=== PATIENT | male | born 1970 | race Caucasian/White ===

== ENCOUNTER 2017-07-09 03:05 | Emergency (ER) | payer MEDICAID ==
[~2017-07-09] VITALS: Ht 175.3 cm; Wt 79.4 kg
[~2017-07-09 03:05] MED LIST: ABI10 PO; SERT50TA PO
[2017-07-09 03:12] VITALS: BP 155/99
--- NOTE | 2017-07-09 03:25 | NUR ---
PATIENT PRESENTS TO ED WITH FEAR OF BEING HURT OR ATTACKED BY AN UNKNOWN ASSAILENT. PT STATES FEELING PARANOID AND "ON-EDGE." HE STATES THAT HE FEELS THOUGH HE WILL HURT WHOM EVER IS AFTER HIM BUT WILL NOT HURT HIMSELF OR ANY OTHERS AT [facility]. PT IS CALM AND COOPERATIVE. APPEARS NERVOUS. DR HUGHES AT BEDSIDE FOR OBSERVATION. DENIES N/V/D; SKIN IS PINK/WARM/DRY; AAOX4 WITH EVEN AND STEADY GAIT; LUNGS CLEAR BL; HR EVEN AND REGULAR; PT DENIES ANY FEVER, CP, SOB, OR COUGH AT THIS TIME; PATIENT STATES PAIN OF 0/10 AT THIS TIME; VSS; PATIENT POSITIONED FOR COMFORT; HOB ELEVATED; BEDRAILS UP X2; BED DOWN. ER MD MADE AWARE OF PT STATUS. CONTINUE TO MONITOR.
--- NOTE | 2017-07-09 03:25 | NUR ---
PT AMBULATED TO ER BED 6
[2017-07-09] MEDS ORDERED: LORazepam 2 MG/ML VIAL IM ONE (03:35)
--- NOTE | 2017-07-09 03:39 | NUR ---
PER DR. HUGHES, WE DO NOT NEED [facility]150 HOLD EVALUATION. PT IN BED RESTING, POSITIONED FOR COMFORT. VSS. CONTINUE TO MONITOR.
[2017-07-09 04:42] VITALS: BP 155/99
--- NOTE | 2017-07-09 04:42 | NUR ---
Patient discharged with v/s stable. Written and verbal after care instructions given and explained. Patient alert, oriented and verbalized understanding of instructions. Ambulatory with steady gait. All questions addressed prior to discharge. ID band removed. Patient advised to follow up with PMD. Rx of Ability, Xanax, and Zoloft given. Patient educated on indication of medication including possible reaction and side effects. Opportunity to ask questions provided and answered.
== END 2017-07-09 04:42 | disposition home or self-care (01) ==
LOC: MED 03:05
DX: F43.9 Reaction to severe stress, unspecified (principal); I10 Essential (primary) hypertension
CPT/HCPCS: 96372; 99283; J2060

== ENCOUNTER 2017-10-13 10:36 | Inpatient (IN) | payer MEDICAID ==
[~2017-10-13] VITALS: Ht 175.3 cm; Wt 77.1 kg
--- NOTE | 2017-10-13 01:41 | NUR ---
PT SLEEPING COMFORTABLY, NO SIGN OF DISTRESS. Addendum: 10/14/17 at 0143 by Camilla Worthington RN WRONG TIME IT SHOULD HAVE BEEN 2200
--- NOTE | 2017-10-13 10:40 | NUR ---
PT AMBULATES TO BED 10
[2017-10-13 10:49] VITALS: BP 147/96
--- NOTE | 2017-10-13 11:05 | NUR ---
PATIENT PRESENTS TO ED WITH COMPLAINTS OF ANXIETY. PATIENT STATES HE FEELS LIKE HE IS GOING CRAZY AND CANNNOT CONTROL THE THOUGHTS IN HIS HEADS. PATIENT ADMITS TO USING METH EARLIER TODAY. PATIENT HAS BURN DUTTON OVER CHEST AND INJECTION WOUNDS OVER ARMS. DENIES N/V/D; SKIN IS PINK/WARM/DRY; AAOX4 WITH EVEN AND STEADY GAIT; LUNGS CLEAR BL; HR EVEN AND REGULAR; PT DENIES ANY FEVER, CP, SOB, OR COUGH AT THIS TIME; PATIENT STATES PAIN OF 0/10 AT THIS TIME; VSS; PATIENT POSITIONED FOR COMFORT; HOB ELEVATED; BEDRAILS UP X1; BED DOWN. ER MD MADE AWARE OF PT STATUS.
[2017-10-13] MEDS ORDERED: LORazepam 1 MG TAB PO ONE ×2 (11:25→15:50)
[2017-10-13] MEDS ORDERED: diphenhydrAMINE 50 MG CAP PO ONE (11:25)
[2017-10-13] MEDS ORDERED: HALOPERIDOL 1 MG TAB PO ONE (11:25)
--- NOTE | 2017-10-13 13:50 | NUR ---
PATIENT WAS FOUND WITH TOP HALF OF IV POLE SWINGING AROUND AND TALKING TO HIMSELF, PATIENT STATED "IM TRYING TO GET RID OF THE VOICES." PER ED MD AND CHARGE NURSE, PATIENT NEEDS A 5150 EVAL.
--- NOTE | 2017-10-13 13:57 | NUR ---
SPOKE WITH AHMET DISPATCHER AT [facility] AND EXPLAINED WE NEED A 5150 EVAL FOR PATIENT. AHMET STATED SHE WILL BE SENDING AN OFFICER SOON.
--- NOTE | 2017-10-13 14:42 | NUR ---
PT MOVED TO BED 5
--- NOTE | 2017-10-13 14:46 | NUR ---
ASSUMED CARE, PT IN NAD. RESP EVEN AND UNLABORED. PT WITH AUDITORY HALLUCINATIONS, DENIES SUICIDAL/HOMICAL IDEATION. SITTER JOHN AT BEDSIDE. DENIES ANY PAIN. IV SL STARTED AND FLUIDS GIVEN ORDERED.
[2017-10-13] MEDS ORDERED: NACL 0.9% 1,000 ML IV ONE (14:52)
--- NOTE | 2017-10-13 14:58 | NUR ---
XRAY AT BEDSIDE
[2017-10-13 15:15] LABS: BASOPHILS % (AUTO) 0.4 % (0.0-2.0); EOSINOPHILS # (AUTO) 0.1 K/uL (0-0.4); EOSINOPHILS % (AUTO) 0.7 % (0.0-4.0); HEMATOCRIT 53.4 % (36-52); HEMOGLOBIN 18.1 g/dL (12.0-18.0); LYMPHOCYTES % (AUTO) 24.8 % (20.5-51.1); MEAN CORPUSCULAR HEMOGLOBIN 32 pg (27-31); MEAN CORPUSCULAR HGB CONC 34 g/dL (33-37); MEAN CORPUSCULAR VOLUME 94.2 fL (80-94); MONOCYTES # (AUTO) 0.6 K/uL (0.8-1.0); MONOCYTES % (AUTO) 4.6 % (1.7-9.3); NEUTROPHILS # (AUTO) 8.3 K/uL (1.8-7.7); NEUTROPHILS % (AUTO) 69.5 % (42.2-75.2); PLATELET COUNT (AUTO) 506 K/uL (140-450); RED BLOOD CELL COUNT(AUTO) 5.67 MIL/uL (4.20-6.10); RED CELL DISTRIBUTION WIDTH 13.8 % (11.6-13.7)
[2017-10-13 15:28] LABS: ANION GAP 13.9 (8-16); CARBON DIOXIDE 28.8 mmol/L (21-32); CHLORIDE 101 mmol/L (98-107); GFR ARICAN-AMERICAN 104 mL/min (>90); GLUCOSE 130 mg/dL (74-106); POTASSIUM 3.7 mmol/L (3.5-5.1); SODIUM SERUM 140 mmol/L (136-145); UREA NITROGEN, BLOOD 20 mg/dL (7-18)
[2017-10-13 15:33] LABS: ALBUMIN 4.5 g/dL (3.4-5.0); ASPARTATE AMINOTRANSFERASE 62 U/L (15-37); TOTAL BILIRUBIN 2.2 mg/dL (0.0-1.0)
--- NOTE | 2017-10-13 16:19 | NUR ---
NO ACUTE CHANGE IN CONDITON, PT CALM AND QUIET. FLUIDS AND FOOD OFFERED, PT REFUSES AT THIS TIME.
[2017-10-13 16:21] LABS: APPEARANCE,URINE CLEAR (CLEAR); BILIRUBIN,URINE 2+ (NEGATIVE); BLOOD, URINE NEGATIVE (NEGATIVE); COLOR,URINE ORANGE (YELLOW); LEUKOCYTE ESTERASE ,URINE NEGATIVE (NEGATIVE); NITRITE, URINE NEGATIVE (NEGATIVE); UGLUCOSE NEGATIVE (NEGATIVE)
[2017-10-13 16:27] LABS: BARBITURATE, URINE NEG. ng/ml (NEG <=200); BENZODIAZEPINE, URINE NEG. ng/mL (NEG <=200); CANNABINOID, URINE POS. ng/mL (NEG <=50); COCAINE, URINE NEG. ng/mL (NEG <=300); OPIATE, URINE NEG. ng/mL (NEG <=2000); PHENCYCLIDINE SCREEN,URINE NEG. ng/mL (NEG <=25)
[2017-10-13 16:35] LABS: RBC,URINE 0-5 (RARE) /HPF (0-5); WBC,URINE 0-5 (RARE) /HPF (0-5)
--- NOTE | 2017-10-13 18:53 | NUR ---
NO ACUTE CHANGE IN CONDITION, PT WITH EYES CLOSED, IN NAD.
[2017-10-13] MEDS ORDERED: ACETAMINOPHEN 325 MG TAB PO PRN (19:05)
[2017-10-13] MEDS ORDERED: ONDANSETRON 4 MG/2 ML VIAL IVP PRN (19:05)
--- NOTE | 2017-10-13 19:10 | NUR ---
Patient appears to be resting comfortably in bed. Respirations even and unlabored.
--- NOTE | 2017-10-13 19:45 | NUR ---
Per Edwina @ [facility] because she does not have access to put notes in [facility]. [facility] S[facility]chez Bear @ [phone] and spoke with Marii, no beds available. Patient is on the waitlist. [facility] Torsten Gillespie @ [phone] and spoke with Kaila, no beds available, patient is on the wait list. [facility] @ [phone] and spoke with Ines, no beds available. [facility] @ [phone] and spoke with Maegan, no beds available. Patient is on the wait list. [facility] @ [phone] and spoke with Everton, no beds available, packet was faxed. [facility] @ [phone] and spoke with Davina. Davina states they want to keep beds for walk-in patients. [facility] @ [phone] and spoke with Cedrick, no beds available, to call back on Sunday. [facility] @ [phone] and spoke with Jag, no beds available, to call back tomorrow morning after shift.
[2017-10-13 19:46] LABS: FREE T4 (FREE THYROXINE) 1.46 ng/dL (0.76-1.46); MAGNESIUM 2.4 mg/dL (1.8-2.4); PHOSPHORUS 3.6 mg/dL (2.5-4.9); THYROID STIMULATING HORMONE 1.05 uIU/mL (0.34-3.74)
--- NOTE | 2017-10-13 20:17 | NUR ---
Patient appears to be resting comfortably in bed. Respirations even and unlabored. Sitter at bedside
[2017-10-13 20:19] LABS: PROTHROMBIN TIME 10.4 secs (10.8-13.4)
--- NOTE | 2017-10-13 20:41 | NUR ---
APatient will be admitted to care of GOVIL. Admited to MS. Will go to room 110B. Belongings list completed. Report to NIKOS VILLEGAS.
[2017-10-13 20:45] VITALS: BP 125/86
--- NOTE | 2017-10-13 20:45 | NUR ---
RECEIVED PT FROM ER VIA W/C, AWAKE, ALERT ORIENTEDX4 NO RESPIRATORY DISTRESS NOTED OR C/O PAIN AT THIS TIME. IV HL TO LEFT AC #20. A SITTER AT THE BEDSIDE. INSTRUCTED PT NOT TO FROM NOW ON DUE TO US IN THE MORNING. HE WAS GIVEN FOOD SOON HE GOT TO THE FLOOR. 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 WILL TAKE PICTURES LATER.
[2017-10-13] MEDS ORDERED: SERTRALINE 50 MG TAB PO SCH (21:00)
[2017-10-13] MEDS ORDERED: QUEtiapine FUMARATE 25 MG TAB PO SCH (21:00)
--- NOTE | 2017-10-13 22:22 | NUR ---
RECEIVED A CALL FROM WILL FROM [facility], PER WILL THEY CANNT ACCEPT PT DUE TO OUT OF [facility]
[2017-10-14 01:00] VITALS: BP 123/83
--- NOTE | 2017-10-14 01:45 | NUR ---
RECEIVED REPORT FROM CHARGE NURSE NIKOS. 1:1 SITTER BY DRAFTER STRUCTURAL PT CURRENTLY IN RESTROOM USING TOILET. NO S/S OF RESPIRATORY DISTRESS OR DISCOMFORT NOTED AT THIS TIME. AOX4, ON ROOM AIR WITH LEFT FA #[id number]. WILL CONTINUE TO MONITOR. Addendum: 10/14/17 at 0400 by Mary Carter RN PLEASE DISREGARD. WRONG PT.
--- NOTE | 2017-10-14 02:05 | NUR ---
NO SIGN OF DISTRESS, SLEEPING QUIETLY.
[2017-10-14 04:10] VITALS: BP 100/60
--- NOTE | 2017-10-14 04:12 | NUR ---
AWAKEN FOR V/S AND PICTURE. NO COMPLAINTS.
--- NOTE | 2017-10-14 06:00 | NUR ---
STILL ASLEEP, NO SIGNS OF DISTRESS.
--- NOTE | 2017-10-14 06:55 | NUR ---
AWAKE, WANTS TO EAT,BUT WAS TOLD THAT HE IS NPO FOR THE TEST US ABDOMEN. WAS TOLD BREAKFAST IS NOT HERE YET, HE ALSO SAID THAT HE IS NOT DOING THE TEST.
--- NOTE | 2017-10-14 07:30 | NUR ---
RECEIVED REPORT FROM PM NURSE, PT SLEEPING BUT AROUSABLE, RA, NO S/S OF RESPIRATORY DISTRESS NOTED. INTRODUCED MYSELF TO PT AND REORIENTED PT ENVIRONMENT. PT VERBALIZED UNDERSTANDING. PT STATED HE WANTS TO HAVE BREAKFAST AND REFUSE ABD US. PT STATED HE DOES NOT HAVE ANY SUICIDAL PLAN AT THIS MOMENT. WILL CONTINUE TO CLOSE MONITORING PT.
[2017-10-14 07:58] LABS: BASOPHILS # (AUTO) 0.1 K/uL (0.00-0.22); BASOPHILS % (AUTO) 0.6 % (0.0-2.0); EOSINOPHILS # (AUTO) 0.2 K/uL (0-0.4); EOSINOPHILS % (AUTO) 2.2 % (0.0-4.0); HEMATOCRIT 44.4 % (36-52); HEMOGLOBIN 15.1 g/dL (12.0-18.0); LYMPHOCYTES # (AUTO) 2.6 K/uL (2.0-11.5); MEAN CORPUSCULAR HEMOGLOBIN 32 pg (27-31); MEAN CORPUSCULAR HGB CONC 34 g/dL (33-37); MEAN CORPUSCULAR VOLUME 95.4 fL (80-94); MONOCYTES # (AUTO) 0.8 K/uL (0.8-1.0); MONOCYTES % (AUTO) 9.6 % (1.7-9.3); NEUTROPHILS # (AUTO) 5.1 K/uL (1.8-7.7); NEUTROPHILS % (AUTO) 57.6 % (42.2-75.2); PLATELET COUNT (AUTO) 414 K/uL (140-450); RED BLOOD CELL COUNT(AUTO) 4.66 MIL/uL (4.20-6.10); RED CELL DISTRIBUTION WIDTH 13.7 % (11.6-13.7); WHITE BLOOD COUNT (AUTO) 8.8 K/uL (4.8-10.8)
--- NOTE | 2017-10-14 08:00 | NUR ---
PT REFUSED VITALS CHECK.
--- NOTE | 2017-10-14 08:05 | NUR ---
MADE DR. GRIFFITH AWARE PT REFUSED ABD US AND WANTS TO EAT BREAKFAST.
[2017-10-14 08:09] LABS: ANION GAP 12.1 (8-16); CARBON DIOXIDE 26.6 mmol/L (21-32); CREATININE 0.8 mg/dL (0.7-1.3); POTASSIUM 3.7 mmol/L (3.5-5.1)
[2017-10-14 08:19] LABS: CHOL/HDL RATIO 3.1 (1-4.5); MAGNESIUM 2.2 mg/dL (1.8-2.4); PHOSPHORUS 3.7 mg/dL (2.5-4.9)
--- NOTE | 2017-10-14 08:31 | NUR ---
[facility] aware patient is still in unit. received report from police shift commander, will continue to look for placement throughout shift. will update unit when new information has been received.
[2017-10-14] MEDS ORDERED: BETAMETHASONE DIPROP 0.05% 15 GM TUBE TP SCH (09:00)
[2017-10-14] MEDS ORDERED: SERTRALINE 50 MG TAB PO SCH (09:00)
[2017-10-14] MEDS ORDERED: QUEtiapine FUMARATE 25 MG TAB PO SCH (09:00)
[2017-10-14] MEDS ORDERED: ARIPiprazole 10 MG TAB PO SCH (09:00)
--- NOTE | 2017-10-14 11:00 | NUR ---
FAXED CONSULTATION FORM TO DR. FRAZIER OFFICE.
--- NOTE | 2017-10-14 12:45 | NUR ---
LUNCH TRAY OFFERED TO PT. PT HAD A GOOD APPETITE.
--- NOTE | 2017-10-14 13:23 | NUR ---
No update from contacted facilities at this time, faxed over paperwork to [facility] s/w [employer] [facility]w [facility], reviewing chart. No Bed Vacancies at following facilities: [facility] s[facility]w [facility] s/w [facility] s/w [facility] s/w [facility] s/w [facility] s/w Puja Stroud [facility] [place] NO ANSWER [facility] NO [facility]SWER [facility] s/w [facility] s/w [facility] s/w [facility] s/w [facility] s/w Ricardo Will continue to look for placement throughout shift.
--- NOTE | 2017-10-14 14:16 | NUR ---
ALso faxed over paperwork to [facility] s/w Teodoro, pending review.
--- NOTE | 2017-10-14 15:20 | NUR ---
PSYCHIATRIST AT BEDSIDE TO ASSESS PT.
[2017-10-14 16:00] VITALS: BP 107/67
[2017-10-14] MEDS ORDERED: DIPRC TP (16:36)
--- NOTE | 2017-10-14 17:00 | NUR ---
PT AOX4, RA, NO SOB NOTED. SIGNED DISCHARGE PAPER,ALL PERSONAL BELONGINGS WITH PT, BUS TICKET OFFERED. RESOURCES FOR HOMELESS GIVEN TO PT, PT SIGNED AND VERBALIZED UNDERSTANDING. IV REMOVED. PT VITALS STABLE AT THIS TIME.
--- NOTE | 2017-10-14 17:19 | NUR ---
PT WALKED OUT OF UNIT WITH STEADY GAIT, OFFERED PT WHEELCHAIR, PT REFUSED.
--- NOTE | 2017-10-16 11:21 | NUR ---
FAXED RETRO REVIEW TO [facility] [phone] PHONE [phone]
== END 2017-10-14 17:21 | disposition home or self-care (01) | DRG 775 ==
LOC: MED 10:36 → MTU 19:09
PROVIDERS: ADMIT Family Medicine; ATTEND Family Medicine
DX: F15.259 Other stimulant dependence with stimulant-induced psychotic disorder, unspecified (principal); F10.20 Alcohol dependence, uncomplicated; E87.2 Acidosis; B19.20 Unspecified viral hepatitis C without hepatic coma; I10 Essential (primary) hypertension; F12.20 Cannabis dependence, uncomplicated; F43.10 Post-traumatic stress disorder, unspecified; F31.9 Bipolar disorder, unspecified; Y90.0 Blood alcohol level of less than 20 mg/100 ml; L40.9 Psoriasis, unspecified; D72.829 Elevated white blood cell count, unspecified; R74.0 Nonspecific elevation of levels of transaminase and lactic acid dehydrogenase [LDH]; F43.9 Reaction to severe stress, unspecified; Z59.0 Homelessness; Z91.5 Personal history of self-harm; Z79.899 Other long term (current) drug therapy; Z71.51 Drug abuse counseling and surveillance of drug abuser; Z91.14 Patient's other noncompliance with medication regimen
CPT/HCPCS: 36415; 71045; 80048; 80053; 80305; 81001; 82150; 83036; 83605; 83690; 83735; 83880; 84100; 84439; 84443; 84484; 85025; 85610; 85730; 87081; 93005; 96360; 96361; 99285; G0482; J7030; Q0092; Q0163